=== PATIENT | male | born 1950 | race Hispanic/Latino ===

== ENCOUNTER 2024-07-09 17:04 | Emergency (ER) | payer MEDICARE ==
[~2024-07-09] VITALS: Ht 172.7 cm; Wt 88.0 kg
[~2024-07-09 17:04] MED LIST: AMBIEN5 MG PO; AMLODIPINE BESYL5 MG PO; BP MEDICATION PO; FLAGYL250 MG PO; LEVAQUIN500 MG PO; VASOTEC5 MG PO
[2024-07-09 17:55] LABS: BASOPHILS % 0.4 % (0.0-1.0); EOSINOPHILS % 0.6 % (0.0-6.0); HEMATOCRIT 40.2 % (38.2-49.6); HEMOGLOBIN 13.4 g/dL (14.0-18.0); LYMPHOCYTES # (AUTO) 0.7 (1.0-3.2); LYMPHOCYTES % 9.7 % (18.0-39.1); MEAN CORPUSCULAR HEMOGLOBIN 32.1 pg (28-32); MEAN CORPUSCULAR HGB CONC 33.3 g/dL (31-35); MEAN CORPUSCULAR VOLUME 96.2 fL (81-99); MONOCYTES # (AUTO) 1.2 (0.2-0.8); MONOCYTES % 18.6 % (4.4-11.3); NEUTROPHILS # (AUTO) 4.7 (2.1-6.9); NEUTROPHILS % 70.4 % (38.7-80.0); PLATELET COUNT 204 x10e3/uL (140-360); RED BLOOD COUNT 4.18 x10e6/uL (4.3-5.7); RED CELL DISTRIBUTION WIDTH 13.5 % (11.7-14.4); WHITE BLOOD COUNT 6.67 x10e3/uL (4.8-10.8)
[2024-07-09 18:25] LABS: ALBUMIN 3.8 g/dL (3.5-5.0); ALBUMIN/GLOBULIN RATIO 1.1 (0.8-2.0); ANION GAP 17.6 mmol/L (8-16); BILIRUBIN,TOTAL 0.5 mg/dL (0.2-1.2); CALCIUM 8.7 mg/dL (8.4-10.2); CREATININE, SERUM 1.2 mg/dL (0.72-1.25); POTASSIUM 3.6 mmol/L (3.5-5.1); TOTAL PROTEIN 7.4 g/dL (6.5-8.1)
[2024-07-09] MEDS: ACETAMINOPHEN 325 MG TAB PO ONE (18:27)
[2024-07-09 18:31] LABS: TROPONIN I 0.014 ng/mL (0-0.300)
[2024-07-09 18:36] LABS: INFLUENZA A AG NEGATIVE (NEGATIVE); INFLUENZA B AG NEGATIVE (NEGATIVE); STREPTOCOCCUS GRP A ANTIGEN NEGATIVE (NEGATIVE)
[2024-07-09 18:37] LABS: CORONAVIRUS COVID-19 AG NEGATIVE (NEGATIVE)
[2024-07-09] MEDS ORDERED: AZITHROMYCIN250 MG PO (18:47)
[2024-07-09] MEDS ORDERED: MEDROL4 M2 PO (18:47)
[2024-07-09 18:50] VITALS: PULSE 81; RESP 21; TEMP 99.9
[2024-07-09] MEDS: DEXAMETHASONE SOD PHOS 10 MG/1 ML VIAL IV ONE (18:57)
[2024-07-09] MEDS: HYDRALAZINE HCL 25 MG TAB PO ONE (19:02)
[2024-07-09 19:06] VITALS: BP 168/84; PULSE 79; RESP 18; TEMP 99.9; O2SAT 95
== END 2024-07-09 19:17 | disposition home or self-care (01) ==
LOC: ER 17:39
DX: R50.9 Fever, unspecified (principal); J40 Bronchitis, not specified as acute or chronic; I10 Essential (primary) hypertension; I25.10 Atherosclerotic heart disease of native coronary artery without angina pectoris; Z11.52 Encounter for screening for COVID-19; R94.31 Abnormal electrocardiogram [ECG] [EKG]; Z95.1 Presence of aortocoronary bypass graft
CPT/HCPCS: 36415; 71046; 80053; 82550; 83518; 84484; 85025; 87070; 87428; 93005; 99284; J1100